=== PATIENT | female | born 1980 | race Caucasian/White ===

== ENCOUNTER → 2023-02-05 | Outpatient (CLI) | payer BC ==
[2023-02-05 15:56] LABS: ALT 9 U/L (8-44); AST 10 U/L (13-35); Albumin 4.1 d/dL (3.8-4.9); Albumin/Globulin Ratio 1.41 Ratio (1.60-3.17); Alkaline Phosphatase 46 U/L (41-126); BUN/Creat Ratio 30.17 Ratio (12.00-20.00); Blood Urea Nitrogen 18.1 mg/dL (9.0-27.0); Calcium 9.5 mg/dL (8.7-10.3); Carbon Dioxide 25.2 mmol/L (21.6-31.8); Chloride 101 mmol/L (96-109); Chol/HDL Ratio 2.91 Ratio; Globulin 2.9 d/dL (1.6-3.3); Glucose 226 mg/dL (70-110); LDL Cholesterol,Calculated 132.5 mg/dL (0.0-131.0); Potassium 4.4 mmol/L (3.5-5.5); Sodium 136 mmol/L (135-145); T4, Free (Free Thyroxine) 1.58 ng/dL (0.80-1.80); Total Bilirubin 0.4 mg/dL (0.3-1.2); VLDL Calculation 8.66 mg/dL (5.00-40.00)
[2023-02-05 15:57] LABS: Basophils # (A) 0.02 X 10*3/uL (0.00-0.10); Basophils % (A) 0.5 %; Eosinophils # (A) 0.06 X 10*3/uL (0.04-0.35); Eosinophils % (A) 1.4 %; HCT 41.4 % (37.2-46.3); HGB 13.3 d/dL (12.0-15.0); Lymphocytes # (A) 1.13 X 10*3/uL (0.90-5.00); MCH 28.5 pg (27.0-32.0); MCHC 32.1 d/dL (32.0-37.0); MCV 88.7 FL (80.0-97.0); Mean Platelet Volume 11.2 FL (9.5-12.2); Monocytes # (A) 0.24 X 10*3/uL (0.20-1.00); Monocytes % (A) 5.7 %; NRBC Per 100 WBC 0 X 10*3/uL (0.00-0.01); Neutrophils # (A) 2.73 X 10*3/uL (1.80-7.70); Neutrophils % (A) 65.2 %; Platelet Count 111 X 10*3/uL (140-440); RBC 4.67 X 10*6/uL (4.10-5.20); RDW 12.7 % (11.5-14.5); WBC 4.19 X 10*3/uL (4.50-10.00)
[2023-02-05 20:45] LABS: Microalbumin Creatinine Ratio <19 mg/g Cr (0-30); Urine Creatinine 64.5 mg/dL (28.0-217.0)
--- NOTE | 2023-02-06 21:58 | NM ---
EXAMINATION TYPE: NM thyroid image w uptake DATE OF EXAM: 02/06/2023 COMPARISON: NONE CLINICAL INDICATION: Female, 43 years old with history of E05.90; TECHNIQUE: Thyroid iodine uptake is calculated and images performed after the oral administration of 321 uCi 1-123 Capsule. FINDINGS: There is normal distribution of activity throughout the gland. The 4 hour iodine uptake is calculated at 16.6% (normal range 8-14%). The 24-hour iodine uptake is calculated at 31.4% (normal r swathi 15-35%). IMPRESSION: Slightly above normal for our identified uptake with normal 24 hour iodine uptake. Result s are equivocal for hyperthyroidism.
== END | disposition home or self-care (01) ==
LOC: RADNMMAIN 08:36
PROVIDERS: ATTEND Internal Medicine Endocrinology, Diabetes & Metabolism
DX: E05.90 Thyrotoxicosis, unspecified without thyrotoxic crisis or storm (principal)
CPT/HCPCS: 78014; 80053; 80061; 82043; 82570; 84439; 84443; 84445; 84480; 85025